=== PATIENT | female | born 1980 | race Two or more races ===

== ENCOUNTER 2024-12-01 12:35 | Emergency (ER) | payer MEDICAID, SELFPAY ==
[2024-12-01 12:36] VITALS: BMI 32.3
[2024-12-01 12:43] VITALS: BP 114/68; PULSE 79; RESP 19; TEMP 36.7; O2SAT 98
--- NOTE | 2024-12-01 12:49 | XR_ITS ---
Examination: Complete OB ultrasound, less than 14 weeks, transabdominal Date and time of exam: December 01, 2024 1436 hrs. Indications: Pelvic pain beginning 4 days ago Technique: Obstetrical ultrasound images less than 14 weeks performed via transabdominal imaging Findings: Uterus 10.1 x 4.7 x 5.8 cm Intrauterine gestational sac corresponding to 5 weeks 5 day gestational age No pole No cardiac activity Right ovary 4.0 x 2.9 cm arterial flow Left ovary 3.0 x 2.3 cm arterial flow No fluid in the cul-de-sac Impression: Empty intrauterine gestational sac corresponding to 5 weeks 5 day gestational age No pole, no cardiac activity Recommend short-term follow-up transvaginal pelvic sonography
--- NOTE | 2024-12-01 12:50 | PD.EDRME ---
Rapid Medical Screening Exam RME Arrival date/time: 12/01/24 12:35 44-year-old female who believes she is approximately 5 weeks presents emergency department today complaints of pelvic pain and cramping Chief Complaint: Abdominal Pain Vital signs: Vital Signs Temperature 98.0 F 12/01/24 12:43 Pulse Rate 79 12/01/24 12:43 Respiratory Rate 19 12/01/24 12:43 Blood Pressure 114/68 12/01/24 12:43 Pulse Oximetry (%) 98 12/01/24 12:43 Oxygen Delivery Method Room Air 12/01/24 12:43
[2024-12-01 13:10] LABS: Basophils % (Auto) 0 % (0-2.5); Eosinophils % (Auto) 1 % (0-10); Hemoglobin 12.3 g/dL (12.0-16.0); Immature Granulocytes % (Auto) 0 % (0-0); Immature Granulocytes Auto 0.01 Thou/mm3 (0.00-0.00); Lymphocytes % (Auto) 23 % (10-50); Mean Corpuscular HGB Conc 31.5 g/dl (31.0-37.0); Mean Corpuscular Hemoglobin 25.7 pg (25.0-35.0); Mean Corpuscular Volume 82 fL (80-100); Monocytes # (Auto) 0.5 Thou/mm3 (0.0-0.8); Monocytes % (Auto) 11 % (0-12); Neutrophils # (Auto) 2.8 Thou/mm3 (1.8-7.7); Neutrophils % (Auto) 65 % (37-80); Nucleated Red Blood Cell % 0 /100 WBC (0); Platelet Count 226 Thou/mm3 (140-440); Red Blood Count 4.78 Miln/mm3 (4.00-5.20); White Blood Count 4.2 Thou/mm3 (3.6-11.0)
[2024-12-01 13:39] LABS: Alanine Aminotransferase 15 U/L (10-49); Albumin/Globulin Ratio 1.4 (1.2-2.2); Alkaline Phosphatase 73 U/L (46-116); Anion Gap 8 (7-16); Aspartate Amino Transferase 17 U/L (0-34); BUN/Creatinine Ratio 14 Ratio (12-20); Bilirubin,Total 0.9 mg/dL (0.3-1.2); Blood Urea Nitrogen 11 mg/dL (9-23); Calcium 8.7 mg/dL (8.3-10.6); Calcium (Corrected) 8.7 mg/dL (8.5-10.1); Carbon Dioxide 26.5 mMol/L (20.0-31.0); Chloride 105 mMol/L (98-107); Creatinine (Component) 0.8 mg/dL (0.6-1.3); Estimated Creatinine Clearance 100.8 mL/min (>60); Globulin 2.9 gm/dL (2.3-3.5); Glucose 86 mg/dL (74-106); Osmolality,Calculated 275 (275-295); Potassium 3.7 mMol/L (3.4-5.1); Sodium 139 mMol/L (136-145); Total Protein 6.9 gm/dL (5.7-8.2); eGFR > 60 See Note
[2024-12-01 13:40] LABS: Collection Type, Urine Clean Catch
[2024-12-01 13:45] LABS: Bilirubin,Urine Negative (Negative); Blood,Urine Negative (Negative); Clarity,Urine Clear (Clear/Hazy); Color,Urine Yellow (Lt Yel-Yel); Glucose, Urine Negative (Negative); Ketones,Urine Negative (Negative); Leukocyte Esterase,Urine Positive (Negative); Nitrite,Urine Negative (Negative); Protein,Urine Trace (Neg - Trace); RBC,Urine 7 /hpf (0-3); Specific Gravity,Urine 1.025 (1.001-1.035); Squamous Epithelial Cell,Urine 2 /hpf (0-5); Urobilinogen,Urine Negative mg/dL (0.0-1.0); WBC,Urine 2 /hpf (0-5)
[2024-12-01 14:11] LABS: Beta HCG,Quantitative 10952 mIU/mL (<5.0)
[2024-12-01 15:29] VITALS: BP 106/67; PULSE 65; RESP 16; TEMP 37.1; O2SAT 99
--- NOTE | 2024-12-01 16:29 | EDNOTE_ITS ---
ED Female Urogenital RME/HPI General Chief complaint: Abdominal Pain Stated complaint: LOWER ABD/BACK PAIN, 5WKS Time Seen by Provider: 12/01/24 16:27 Arrival date/time: 12/01/24 12:35 44-year-old female who believes she is approximately 5 weeks presents emergency department today complaints of pelvic pain and cramping Limitations: no limitations RME / HPI RME / HPI Narrative: 12/01/24 12:35 44-year-old female who believes she is approximately 5 weeks presents emergency department today complaints of pelvic pain and cramping Related Data Previous Rx's ?Medication ?Instructions ?Recorded diphenhydramine HCl 25 mg capsule 25 mg PO Q6H PRN all ergic reaction 08/10/20 (Benadryl) #30 caps epinephrine 0.3 mg/0.3 mL 0.3 ml subcut Q15MIN PRN 10/18 injection, auto-injector (EpiPen hypersensitivity reac tion #2 ea 2-Sanket) ibuprofen 800 mg tablet 800 mg PO TID PRN pain #30 t abs 05/29/21 loperamide 2 mg capsule (Imodium 2 mg PO Q6H PRN loose stool #14 12/19/23 A-D) caps ondansetron 4 mg disintegrating 4 mg PO Q8H PRN nausea and 12/19/23 tablet vomiting #10 tabs Allergies Allergy/AdvReac Type Severity Reaction Status Date / Time No Known Allergies Allergy Verified 12/01/24 12:36 Review of Systems Review of Systems Systems Reviewed: All systems reviewed, normal except as documented Constitutional Constitutional: Reports system reviewed and no additional complaints, except as documented, Denies fever(s) and Denies headache(s) Eyes Eyes: Reports system reviewed and no additional complaints, except as documented and Denies blurry vision ENT Ears, Nose, Mouth, and Throat: Reports system reviewed and no additional complaints, except as documented, Denies headache(s), Denies nasal congestion and Denies nasal discharge Cardiovascular Cardiovascular: Reports system reviewed and no additional complaints, except as documented, Denies chest pain and Denies dyspnea Respiratory Respiratory: Reports system reviewed and no additional complaints, except as documented, Denies chest congestion, Denies cough and Denies dyspnea Gastrointestinal Gastrointestinal: Reports system reviewed and no additional complaints, except as documented and Denies abdominal pain Genitourinary Genitourinary: Reports system reviewed and no additional complaints, except as documented and Reports pelvic pain Integumentary/Breasts Skin/Breast: Reports system reviewed and no additional complaints, except as documented and Denies rash Neurologic Neurologic: Reports system reviewed and no additional complaints, except as documented, Reports as per HPI and Denies headache(s) Past Medical History Past Medical History NEUROLOGIC: Negative Neurological Disorders or Seizures CARDIAC: Negative Cardiac Disorders or Congestive Heart Failure RESPIRATORY: Negative Chronic Obstructive Pulmonary Disease (COPD) GASTROINTESTINAL: Positive Gastrointestinal Disorders and Hemorrhoids; Negative Hepatitis or Colorectal Cancer GENITOURINARY: Negative Genitourinary Disorders, Renal Disease or Prostate Cancer REPRODUCTIVE: Positive Previous Pregnancies (X4); Negative Breast Cancer MUSCULOSKELETAL: Negative Musculoskeletal Disorders ENDOCRINE: Negative Endocrine Disorders, Diabetes Mellitus Type 1 or Diabetes Mellitus Type 2 HEMATOLOGIC: Negative Blood Disorders, Anemia or Clotting Problems OTHER HISTORY: Positive Falls; Negative Autoimmune Disease, Blood Transfusions, Blood Transfusion Reaction (n/a), Anesthesia Reactions, Organ Transplant, MRSA, Human Immunodeficiency Virus (HIV), Chicken Pox, Measles, Mumps, Rubella (S[place] Measles), Pertussis, Clostridium Difficile, Breast Cancer, Cervical Cancer, Colorectal Cancer, Lung Cancer, Ovarian Cancer or Prostate Cancer Family History FAMILY HISTORY: Positive Family Cardiac Disorders (mother and father HTN, hyperlipidemia), Family Cancer (grandfather back area) and Family Surgery (mother tumor on back area); Negative Family Psychiatric Problems, Family Respiratory Disorders, Family Gastrointestinal Problems or Family Anesthesia Reaction Surgical History SURGICAL: Positive Vascular Surgery (Bilateral varicose vein surgery); Negative Cardiac Surgery, Endocrine Surgery, Ear Surgery, Abdominal Surgery, Nephrectomy, Joint Replacement, Neurologic Surgery, Mastectomy, Vasectomy or Organ Transplant Social History SMOKING STATUS: Never smoker ED Exam General Limitations: Present no limitations General appearance: Present alert and in no apparent distress Head Head exam: Present atraumatic, normocephalic and normal inspection Eye Eye exam: Present normal appearance, PERRL and EOMI; Absent conjunctival injection ENT ENT exam: Present normal exam, normal oropharynx and mucous membranes moist Neck Neck exam: Present normal inspection, full ROM and trachea midline Chest Chest inspection: Present normal inspection and symmetric chest wall rise Respiratory Respiratory exam: Present normal lung sounds bilaterally Cardiovascular Cardiovascular exam: Present regular rate, normal rhythm and normal heart sounds Abdominal Exam Abdominal exam: Present soft and normal bowel sounds; Absent distention, tenderness, guarding, rebound or rigidity Extremities Exam Extremities exam: Present normal inspection and full ROM Back Exam Back exam: Present normal inspection and full ROM Neurological Exam Neurological exam: Present alert, oriented X3 and CN II-XII intact Psychiatric Psychiatric exam: Present normal affect and normal mood Skin Skin exam: Present warm, dry, intact and normal color Course Quality Measures none Orders Category Date Time Status US OB <= 14 weeks fetus Stat Exams 12/01/24 12:49 Completed ABO/RH Type Stat Lab 12/01/24 12:59 Completed Beta HCG,Quantitative Stat Lab 12/01/24 12:59 Completed CBC Stat Lab 12/01/24 12:59 Completed Comprehensive Metabolic Panel Stat Lab 12/01/24 12:59 Completed UA [Urinalysis] Stat Lab 12/01/24 13:30 Completed Urine Culture Stat Lab 12/01/24 13:30 Received Vital Signs Vital signs: Vital Signs Temperature 98.0 F 12/01/24 12:43 Pulse Rate 79 12/01/24 12:43 Respiratory Rate 19 12/01/24 12:43 Blood Pressure 114/68 12/01/24 12:43 Pulse Oximetry (%) 98 12/01/24 12:43 Oxygen Delivery Method Room Air 12/01/24 12:43 O2 saturation 98% room air within the limits Urogenital - Female MDM Narrative MDM Narrative:: 44-year-old female who believes she is approximately 5 weeks presents emergency department today complaints of pelvic pain and cramping On exam patient does not appear ill or toxic in no acute distress patient reports no active bleeding Lab work as well as ultrasound obtained no acute emergent findings noted Patient instructed to follow-up with [facility] within next 24 to 48 hours for reevaluation if patient develops any significant bleeding or pain to return immediately Patient data External records reviewed:: [facility] previous records Clinical information provided by:: patient Social determinants that could affect healthcare access:: none Patient has the following chronic illnesses:: History How is presenting disease/condition affected by chronic disease/condition?: uneffected by Evaluation data The following diagnostics were reviewed and interpreted by me:: lab results and radiology exam(s) Lab and/or radiology exams considered but not ordered:: Labs and radiology obtained Interpretation Summary: Reviewed by me Medications / Prescriptions Medications or Prescriptions considered but not ordered:: No med Medication administrations:: No meds Consultations Consultation(s) initiated? (list below): No Diagnosis Urogenital Female Differential Diagnosis: urinary tract infection, cystitis and dysmenorrhea Most likely diagnosis given after review of the tests above:: UTI Admission Indicated Admission indicated?: not indicated Admission Request Was there a request for admission?: No Disposition Plan Disposition Plan: Discharge Discharge Attestation Discharge Attestation: The patient and all family members were given an opportunity to ask questions and understood the discharge instructions. Discharge instructions specifically effects, indications for sooner follow up or return to the emergency department, and the expected course of current diagnosis. Patient condition: Stable Discharge Plan Plan Patient Disposition: HOME (Self Care) Disposition Comment: Stable Prescriptions/Referrals Prescriptions/Med Rec: No Action diphenhydramine HCl [Benadryl] 25 mg capsule 25 mg PO Q6H PRN (Reason: allergic reaction) Qty: 30 0RF Rx Instructions: Please print instructions in [place] may take up to 2 caps q6h prn allergic reaction/itching epinephrine [EpiPen 2-Sanket] 0.3 mg/0.3 mL auto-injector 0.3 ml subcut Q15MIN PRN (Reason: hypersensitivity reaction) Qty: 2 0RF Rx Instructions: instructions in [place] please ibuprofen 800 mg tablet 800 mg PO TID PRN (Reason: pain) Qty: 30 0RF loperamide [Imodium A-D] 2 mg capsule 2 mg PO Q6H PRN (Reason: loose stool) Qty: 14 0RF ondansetron 4 mg tablet,disintegrating 4 mg PO Q8H PRN (Reason: nausea and vomiting) Qty: 10 0RF Referrals: No Primary/Family,Physician [Primary Care Provider] - In 1 week Problem List Clinical Impression: Pelvic pain affecting Patient/Caregiver Discharge Instructions Education Materials: Medicine for Pain Additional Instructions: Please have repeat ultrasound lab work in 1 week for worsening symptoms or concerns return immediately Print Language: [place]al[place] Stand Alone Forms: Jocelyn Award Info., Patient Portal Info Letter PA/[employer] Supervising Physician STEPHANIE/MERARY Supervising Physician: Dr Aguilar
== END 2024-12-01 16:39 | disposition home or self-care (01) ==
PROVIDERS: Nurse Practitioner Primary Care; Emergency Provider Emergency Medicine
DX: O26.891 Other specified pregnancy related conditions, first trimester (principal); R10.2 Pelvic and perineal pain; Z3A.01 Less than 8 weeks gestation of pregnancy
CPT/HCPCS: 36415; 76801; 80053; 81001; 84702; 85025; 86900; 86901; 87086; 99284

== ENCOUNTER → 2024-12-25 | Outpatient (CLI) | payer MEDICAID, SELFPAY ==
--- NOTE | 2024-12-25 | XR_ITS ---
Examination: Screening digital mammography, bilateral Computer aided detection 3-D breast Tomosynthesis, bilateral Date and time of exam: 2624, 11:31 AM Comparisons: December 2022 Indications: Screening Technique: Nonmagnified MLO, CC views of the breasts to been obtained, reconstructed from 3-D Tomosynthesis images. R2 computer aided detection program utilized for evaluation of suspicious masses and/or abnormal calcifications. 3-D Tomosynthesis images obtained. Technologist: Findings: The breasts are heterogeneously dense, which may obscure small masses. No evidence of abnormal masses or suspicious calcifications. Impression: BI-RADS category 1: Negative findings (within normal) Recommend 1 year follow-up mammogram
== END | disposition home or self-care (01) ==
PROVIDERS: Referring Provider Family Medicine; Visit Provider Family Medicine
DX: Z12.31 Encounter for screening mammogram for malignant neoplasm of breast (principal); R92.313 Mammographic fatty tissue density, bilateral breasts
CPT/HCPCS: 77063; 77067